=== PATIENT | male | born 1955 | race Caucasian/White ===

== ENCOUNTER 2024-11-05 09:32 | Outpatient (REF) | payer MEDICARE, SELFPAY ==
--- OUTSIDE RECORDS SUMMARY | 2024-11-05 10:35 | XMS_ITS | Clinical Summary ---
Author Organization [facility] Address [address] [place] [address] Phone Care Team Providers Care Potato Loader Name Role Phone Fidencio Smith Primary Care Provider [phone] Allergies No known active allergies Medications No known medications Active Problems No known active problems Immunizations Name Administration Dates Next Due Moderna SARS-CoV-2 COVID-19, mRNA, LNP-S, preservative free 08/22/2020,07/25/2020 Surgical History Surgery Date Site/Laterality Comments BACK SURGERY 03/04/2021 Left PROCEDURE: HISTORICAL BACK SURGERY; COMMENT: Lt L4-5 lami, partial facetectomy, interbody fusion L4-5 HERNIA REPAIR PROCEDURE: AR RPR 1ST INGUN HRNA AGE 6 MO-5 YRS REDUCIBLE KIDNEY STONE SURGERY PROCEDURE: AR NEPHROLITHOTOMY REMOVAL CALCULUS Medical History Medical History Date Comments Mixed hyperlipidemia DX:Mixed hy perlipidemia Mild intermittent asthma, uncomplicated DX:Mild intermittent asthma, uncomplicated GERD (gastroesophageal reflux disease) DX:GERD (gastroesophageal reflux disease) Prediabetes DX:Prediabetes Blurred vision DX:Blurred visio n DM (diabetes mellitus) ([facility] V24, [facility] V28) DX:DM (diabetes mellitus) ([facility]) Arthritis DX:Arthritis Mild intermittent asthma, uncomplicated DX:Mild intermittent asthma, uncomplicated Cataracts, bilateral DX:Cataract s, bilateral Cancer ([facility] V24, [facility] V28) Social History Tobacco Use Types Packs/Day Years Used Date Smoking Tobacco: Never Smokeless Tobacco: Never Alcohol Use Standard Drinks/Week Comments Never 0 (1 standard drink = 0.6 oz pur e alcohol) Sex and Gender Information Value Date Recorded Sex Assigned at Male 05/12/2024 10:24 PM EST Legal Sex Male 3:33 PM EST Gender Identity Male 05/12/2024 10:24 PM EST Sexual Orientation Straight 05/12/2024 10 :24 PM EST Obstetrics History Last Filed Vital Signs Vital Sign Reading Time Taken Comments Blood Pressure 114/86 05/12/2024 11:34 PM EST Pulse 86 05/12/2024 11:34 PM EST Temperature 36.8 ??C (98.2 ??F) 05/12/2024 11:[address] Respiratory Rate 18 05/12/2024 11:34 PM EST Oxygen Saturation 99% 05/12/2024 11:34 PM EST Inhaled Oxygen Concentration - - Weight 63 kg (139 lb) 05/12/2024 7:27 PM EST Height 157.5 cm (5' 2 ) 05/12/2024 7:27 PM EST Body Mass Index 25.42 05/12/2024 7:27 PM EST Plan of Treatment Health Maintenance Due Date Last Done Comments RSV Immunization Adult Patients (1 - Risk 60-74 years 1-dose series) 2015 Colorectal Cancer Screening: Colonoscopy 04/27/2022 Falls Risk Assessment 04/27/2022 Medicare Annual Wellness Visit 04/27/2022 Social Influencers of Health Screening 04/27/2022 COVID-19 Vaccine ( season) 2024 01/24/2023, 04/15/2021, 08/22/2020, Additional history exists Hepatitis B Vaccines (2 of 3 - Hep B Twinrix 3-dose series) 05/16/2024 04/18/2024 Influenza Vaccine (Season Ended) 2025 DTaP,Tdap,and Td Vaccines (3 - Td or Tdap) 02/27/2025 02/27/2015, 11/23/2008 Depression Screening 04/18/2025 04/18/2024 Hypertension/CHF/CAD Annual BMP Blood Test 04/19/2025 04/19/2024 Cholesterol Screening (Lipid Panel) 04/19/2029 04/19/2024, 04/19/2024, 10/05/2023, Additional history exists Hepatitis C Screening Completed 07/20/2018, 019 Zoster Vaccines Completed 01/18/2022, 0710/2021, 11/17/2021 Pneumococcal Vaccine: 50+ Years Completed 04/13/2023, 01/18/2022, 06/05/2015 Hepatitis A Vaccines Aged Out 04/18/2024 No long er eligible based on patient's age to complete this topic HIB Vaccines Aged Out No longer eligi ble based on patient's age to complete this topic HPV Vaccines Aged Out No longer eligi ble based on patient's age to complete this topic IPV Vaccines Aged Out No longer eligi ble based on patient's age to complete this topic MMR Vaccines Aged Out No longer eligi ble based on patient's age to complete this topic Meningococcal ACWY Vaccine Aged Out N o longer eligible based on patient's age to complete this topic Meningococcal B Vaccine Aged Out No l onger eligible based on patient's age to complete this topic RSV Immunization Patients Under 20 months Aged Out No longer eligible based on patient's age to complete this topic Varicella Vaccines Aged Out No longer eligible based on patient's age to complete this topic Insurance [place] [address] MEDICAID - [place] Advance Directives Documents on File Type Date Recorded Patient Cane Flume Watchman Expl anation Health Care Decision (hx) 04/24/2023 AD RANKIN DIRECTIVE Health Care Decision (hx) 04/24/2023 AD RANKIN DIRECTIVE Care Teams Potato Loader Relationship Specialty Start Date End Date Fidencio Smith PA [address] [place] [address] PCP - General 12/12/23
== END 2024-11-05 09:33 | disposition home or self-care (01) ==
LOC: HO.SH 09:32
PROVIDERS: Visit Provider Physician Assistant Medical
DX: Z01.118 Encounter for examination of ears and hearing with other abnormal findings (principal); H90.3 Sensorineural hearing loss, bilateral
CPT/HCPCS: 92557; 92567